=== PATIENT | male | born 1950 | race Caucasian/White ===

== ENCOUNTER 2019-05-02 08:04 | Emergency (ER) | payer MEDICARE, OTHER ==
[2019-05-02] MEDS ORDERED: MORPHINE SULFATE 2 MG INJ IV ONE (08:07)
[2019-05-02] MEDS ORDERED: BABY ASPIRIN 81 MG CHEW PO ONE (08:07)
[2019-05-02] MEDS ORDERED: Heparin 5000 UNITS/0.5 ML (HIGH RISK MED) IV ONE (08:07)
[2019-05-02] MEDS ORDERED: Zofran 4 MG/2 ML VIAL IV ONE (08:07)
--- NOTE | 2019-05-02 08:10 | ERPHSYRPT ---
- History of Present Illness Time Seen by Provider: 05/02/19 08:08 Historian: patient Exam Limitations: no limitations Physician History: chest pain an hour ago. Patient is a history of coronary artery disease. History of cardiac stent at [facility]. patient was on blood thinner for the PE. There is blood thinner was stopped 5 days ago because he is getting colonoscopy in few days. Girl friend in the room. She says that last fracture extending happened when he was scheduled for colonoscopy he had a heart attack. Timing/Duration: today Activities at Onset: none Quality: pressure, stabbing Location: substernal Chest Pain Radiation: no radiation Severity of Pain-Max: severe Severity of Pain-Current: severe Modifying Factors: Improves With: nothing Associated Symptoms: nausea, heartburn, shortness of breath Prior Chest Pain/Cardiac Workup: cardiac cath, heart attack, pulmonary embolism Nitro Today/Relief: 0.4 mg x 1, no relief Aspirin Treatment Today: no aspirin today Allergies/Adverse Reactions: No Known Drug Allergies Allergy (Unverified 05/02/19 08:14) Home Medications: Aspirin EC 325 mg [Ecotrin 325 MG] 325 mg PO DAILY 04/15/19 [History] Carvedilol 6.25 mg [Coreg 6.25 MG] 6.25 mg PO BID 04/15/19 [History] Clopidogrel Bisulfate 75 mg [PLAVIX 75 MG Tablet] 75 mg PO DAILY 04/15/19 [History] Lisinopril [Zestril] 2.5 mg PO DAILY 04/15/19 [History] Pravastatin Sodium [Pravachol] 40 mg PO DAILY 04/15/19 [History] - Review of Systems Constitutional: No Fever, No Chills Eyes: No Symptoms Ears, Nose, & Throat: No Symptoms Respiratory: Other (SOB), No Cough, No Dyspnea Cardiac: Chest Pain, No Edema, No Syncope Abdominal/Gastrointestinal: No Abdominal Pain, No Nausea, No Vomiting, No Diarrhea Genitourinary Symptoms: No Dysuria Musculoskeletal: No Back Pain, No Neck Pain Skin: No Rash Neurological: No Dizziness, No Focal Weakness, No Sensory Changes Psychological: No Symptoms Endocrine: No Symptoms All Other Systems: Reviewed and Negative - Past Medical History Pertinent Past Medical History: Yes Neurological History: No Pertinent History ENT History: No Pertinent History Cardiac History: Coronary Artery Disease, Hypertension Respiratory History: No Pertinent History Endocrine Medical History: No Pertinent History Musculoskeletal History: No Pertinent History GI Medical History: No Pertinent History History: No Pertinent History Psycho-Social History: No Pertinent History Male Reproductive Disorders: No Pertinent History - Past Surgical History Past Surgical History: Yes Neuro Surgical History: No Pertinent History Cardiac: Cardiac Stent Respiratory: No Pertinent History Gastrointestinal: Appendectomy Genitourinary: No Pertinent History Musculoskeletal: No Pertinent History Male Surgical History: No Pertinent History - Social History Smoking Status: Current every day smoker How long have you smoked: 49yrs Exposure to second hand smoke: Yes Drug Use: none - Nursing Vital Signs Nursing Vital Signs: Initial Vital Signs Temperature 98.2 F 05/02/19 08:04 Pulse Rate 69 05/02/19 08:04 Respiratory Rate 18 05/02/19 08:04 Blood Pressure 131/77 05/02/19 08:04 O2 Sat by Pulse Oximetry 99 05/02/19 08:04 Pain Scale Pain Intensity 10 - Physical Exam General Appearance: no apparent distress, alert Eye Exam: PERRL/EOMI, eyes nml inspection Ears, Nose, Throat Exam: normal ENT inspection, moist mucous membranes Neck Exam: normal inspection, non-tender, supple, full range of motion Respiratory Exam: normal breath sounds, lungs clear, No respiratory distress Cardiovascular Exam: regular rate/rhythm, normal heart sounds Gastrointestinal/Abdomen Exam: soft, No tenderness, No mass Back Exam: normal inspection, No CVA tenderness, No vertebral tenderness Extremity Exam: normal inspection, normal range of motion Neurologic Exam: alert, oriented x 3, cooperative, normal mood/affect, sensation nml, No motor deficits Skin Exam: normal color, warm, dry - Course Nursing assessment & vital signs reviewed: Yes EKG Interpreted by Me: Sinus Rhythm, ST Elev (Ant Lat STEMI) Ordered Tests: Active Orders 24 hr Category Date Time Status Information Technology Auditor STAT Care 05/02/19 08:08 Active EKG-ER Only STAT Care 05/02/19 08:07 Active IV Insertion STAT Care 05/02/19 08:07 Active Oxygen-ED Only Nasal Cannula 2 lpm Care 05/02/19 08:07 Active CHEST 1 VIEW (PORTABLE) Stat Exams 05/02/19 08:08 Ordered CBC W DIFF Stat Lab 05/02/19 08:07 Ordered CK-Creatinine Phosphokinase Stat Lab 05/02/19 08:07 Ordered CMP Stat Lab 05/02/19 08:07 Ordered PROTIME WITH INR Stat Lab 05/02/19 08:07 Ordered TROPONIN Q3H Lab 05/02/19 08:15 Ordered TROPONIN Q3H Lab 05/02/19 11:15 Ordered TROPONIN Q3H Lab 05/02/19 14:15 Ordered TROPONIN Q3H Lab 05/02/19 17:15 Ordered TROPONIN Q3H Lab 05/02/19 20:15 Ordered Medication Summary Generic Name Dose Route Start Last Admin Trade Name Freq PRN Reason Stop Dose Admin Heparin Sodium/Dextrose 250 mls @ 10 mls/hr 05/02/19 08:30 Heparin 25,000 Units/D5w 250ml Premix IV 06/01/19 08:29 .Q24H ISMAEL Discontinued Medications Generic Name Dose Route Start Last Admin Trade Name Freq PRN Reason Stop Dose Admin Aspirin 324 mg 05/02/19 08:07 05/02/19 08:18 Baby Aspirin 81 Mg Chew PO 05/02/19 08:08 324 mg STAT ONE Administration Heparin Sodium (Beef Lung) 5,000 unit 05/02/19 08:07 05/02/19 08:19 Heparin 5000 Units/0.5 Ml (High Risk Med) IV 05/02/19 08:08 5,000 unit STAT ONE Administration Hydromorphone HCl 1 mg 05/02/19 08:17 05/02/19 08:21 Hydromorphone 1 Mg/Ml Ampule IV 05/02/19 08:18 1 mg STAT ONE Administration Hydromorphone HCl Confirm 05/02/19 08:18 Hydromorphone 1 Mg/Ml Ampule Administered 05/02/19 08:19 Dose 1 mg .ROUTE .STK-MED ONE Lorazepam 1 mg 05/02/19 08:17 05/02/19 08:20 Ativan 2 Mg/1 Ml Vial IV 05/02/19 08:18 1 mg STAT ONE Administration Lorazepam Confirm 05/02/19 08:18 Ativan 2 Mg/1 Ml Vial Administered 05/02/19 08:19 Dose 2 mg .ROUTE .STK-MED ONE Morphine Sulfate 2 mg 05/02/19 08:07 05/02/19 08:18 Morphine Sulfate 2 Mg Inj IV 05/02/19 08:08 2 mg STAT ONE Administration Morphine Sulfate Confirm 05/02/19 08:11 Morphine Sulfate 2 Mg Inj Administered 05/02/19 08:12 Dose 2 mg .ROUTE .STK-MED ONE Ondansetron HCl 4 mg 05/02/19 08:07 05/02/19 08:18 Zofran 4 Mg/2 Ml Vial IV 05/02/19 08:08 4 mg STAT ONE Administration Ondansetron HCl Confirm 05/02/19 08:11 Zofran 4 Mg/2 Ml Vial Administered 05/02/19 08:12 Dose 4 mg .ROUTE .STK-MED ONE - Progress Progress: re-examined, unchanged Air Movement: fair Progress Note: 05/02/19 08:10 I am on phone with [facility] to transfer this pt with STEMI 05/02/19 08:13 [facility] 05/02/19 08:22 EMS in ER to picker/puller pt Counseled pt/family regarding: diagnosis (need for TX) - Departure Departure Disposition: Transfer Clinical Impression: STEMI (ST elevation myocardial infarction) Qualifiers: Involved coronary artery: unspecified coronary artery Qualified Code(s): I21.3 - ST elevation (STEMI) myocardial infarction of unspecified site Condition: Fair Critical Care Time: No Referrals: Provider,Unknown [Primary Care Provider] - Instructions: Heart Attack Additional Instructions: critical care time was less than 30 minutes
[2019-05-02] MEDS ORDERED: MORPHINE SULFATE 2 MG INJ ONE (08:11)
[2019-05-02] MEDS ORDERED: Zofran 4 MG/2 ML VIAL ONE (08:11)
[2019-05-02 08:14] VITALS: BP 131/77; PULSE 70; O2SAT 99
[2019-05-02] MEDS ORDERED: Ativan 2 MG/1 ML VIAL IV ONE (08:17)
[2019-05-02] MEDS ORDERED: Hydromorphone 1 mg/ml Ampule IV ONE (08:17)
[2019-05-02] MEDS ORDERED: Ativan 2 MG/1 ML VIAL ONE (08:18)
[2019-05-02] MEDS ORDERED: Hydromorphone 1 mg/ml Ampule ONE (08:18)
[2019-05-02 08:20] LABS: Absolute Neutrophil Ct (ANC) 7.84 (1.4-6.9); BASOPHIL % 0.3 % (0.0-0.4); Basophil (Absolute #) 0.04 (0-0.4); Eosinophil % 3.4 % (0.00-5.0); Hematocrit 48.9 % (42-50); Hemoglobin 16.6 gm/dl (12.5-18.0); Lymphocyte (Absolute #) 5.37 (1.0-4.6); Lymphocytes % 36.9 % (24.0-44.0); Mean Cell Volume 99.8 fl (78-100); Mean Corpuscular Hemoglobin 33.9 pg (26-32); Mean Corpuscular Hgb Concent. 33.9 g/dl (32-36); Mean Platelet Volume 9.8 fl (6-9.5); Monocyte (Absolute #) 0.79 (0.0-1.3); Monocytes % 5.4 % (0.0-12.0); Platelet Count 236 K/mm3 (150-450); Red Cell Distribution Width 12.2 % (11.5-14.0); White Blood Count 14.5 K/mm3 (4.0-10.5)
[2019-05-02 08:27] LABS: INR 1.17 (0.8-3.0); PROTIME 13.3 SECONDS (8.83-12.87)
[2019-05-02] MEDS ORDERED: Heparin 25,000 units/D5W 250ML PREMIX 25,000 UNITS/250 ML BAG IV SCH (08:30)
[2019-05-02 08:32] LABS: ALBUMIN 4.3 g/dL (3.5-5.0); ALKALINE PHOSPHATASE 105 U/L (38-126); ANION GAP 11.8 MEQ/L (5-15); BLOOD UREA NITROGEN 10 mg/dL (9-20); CHLORIDE 102 mmol/L (98-107); CK-Creatinine Phosphokinase 57 U/L (55-170); Calcium 9.5 mg/dL (8.4-10.2); Carbon Dioxide 29 mmol/L (22-30); Creatinine 1 0.88 mg/dL (0.66-1.25); Glucose 138 mg/dL (74-106); SGOT/AST 28 U/L (17-59); SGPT/ALT 21 U/L (0-50); SODIUM 138 mmol/L (137-145); Total Protein 8.5 g/dL (6.3-8.2)
[2019-05-02 08:36] LABS: Slide Review 1 YES
--- NOTE | 2019-05-02 08:39 | XRAY ---
Indication: Chest pain. Abnormal EKG. Comparison: None Portable chest hyperinflated with both costophrenic angles not completely included in the [id number]. Minimal bibasilar fibrosis/scarring. Remaining lungs clear. Heart is not enlarged for AP portable technique. Bony thorax intact with mild degenerative changes. Impression: Nonacute limited portable chest with chronic features.
== END 2019-05-02 08:23 | disposition short-term general hospital (02) ==
LOC: ED 08:04
DX: I21.3 ST elevation (STEMI) myocardial infarction of unspecified site (principal); I10 Essential (primary) hypertension; I25.10 Atherosclerotic heart disease of native coronary artery without angina pectoris; Z79.899 Other long term (current) drug therapy; Z86.711 Personal history of pulmonary embolism
CPT/HCPCS: 36000; 36415; 71045; 80053; 82550; 84484; 85025; 85610; 93005; 93041; 96374; 96375; 99285; 99291; J1170; J1644; J2060; J2270; J2405; A9270-GY